=== PATIENT | male | born 1945 | race Caucasian/White ===

== ENCOUNTER → 2020-12-31 08:13 | Outpatient (CLI) | payer MEDICARE, MEDICAID, SELFPAY ==
[2020-12-17 09:46] VITALS: BMI 21.1
--- NOTE | 2020-12-31 08:17 | CT_ITS ---
STUDY: CT CHEST WITH CONTRAST REASON FOR EXAM: Male, 75 years old. BLADDER MASS WITH HISTORY OF COLON CANCER RADIATION DOSAGE (If Supplied By Facility): CTDIvol = ( 12.40 ) mGy, DLP = ( 1156.97 ) mGycm TECHNIQUE: Transaxial imaging was performed following intravenous administration of Oral and amp;amp; IV Readi-CAT and amp;amp; 100mL Isovue-300. Individualized dose optimization techniques were used for this CT. COMPARISON: None. FINDINGS: Increased markings with areas of confluence at the lung bases suggestive of scarring. Pleural thickening at the lung bases. No pulmonary mass lesion is seen. There are calcifications of the coronary arteries. Calcification of the mitral valve annulus. Normal mediastinum. Normal hilar regions. Normal enhanced pulmonary arteries. There is atherosclerotic calcification of the aortic arch with tortuosity and elongation of the aortic arch and descending thoracic aorta. There is demineralization of the thoracic spine. Small hiatal hernia. There is an 8.4 mm hypodensity in the medial portion of the right lobe of the liver suggestive of a small cyst. CT/Chest WITH Contrast IMPRESSION: Findings suggestive of a scarring at the lung bases. No pulmonary infiltration or mass lesion is seen. Electronically Signed: Hira Zhang MD at 10:08 EST , Service support ,
--- NOTE | 2020-12-31 08:17 | CT_ITS ---
STUDY: CT ABDOMEN AND PELVIS WITH CONTRAST REASON FOR EXAM: Male, 75 years old. BLADDER MASS . HISTORY OF COLON CANCER AND COLOSTOMY. RADIATION DOSAGE (If Supplied By Facility): CTDIvol = ( 12.40 ) mGy, DLP = ( 1156.97 ) mGycm TECHNIQUE: Transaxial images were obtained from the dome of the diaphragm to the symphysis pubis with oral contrast. Oral and IV Readi-CAT and 100mL Isovue-300 was administered. Sagittal and coronal images were reconstructed. Individualized dose optimization techniques were used for this CT. COMPARISON: None. FINDINGS: Mild scarring at the lung bases with pleural thickening. Coronary artery calcification. Calcification of the mitral valve annulus. There is a 9.1 mm rounded hypodensity in the medial aspect of the right lobe liver suggestive of a small cyst. There is also evidence of a similar appearing nodule in the right lobe medially measuring 9.5 mm. Normal gallbladder and extrahepatic biliary system. Normal spleen. Normal pancreas. Normal bilateral adrenal glands. Normal right kidney. Normal left kidney. There is a small hiatal hernia. Normal small intestine. A colostomy is seen in the left anterior lower quadrant. The appendix is visualized and appears normal. There is diffuse atherosclerotic calcification of the abdominal aorta, without a demonstrated aneurysm. Normal inferior vena cava. Normal retroperitoneum. There is diffuse bladder wall thickening. There is evidence of a 2.2 cm x 1.9 cm polypoid mass at the base of the bladder on the right side. There is enlargement of the prostate gland. It measures 4.1 cm x 4.8 cm. Normal abdominal wall. There are diffuse degenerative changes of the visualized lumbar spine. Levoscoliosis. CT/Abdomen/Pelvis WITH Contrast IMPRESSION: Diffuse bladder wall thickening with a polypoid mass at the right side of the base of the bladder measuring 2.2 sides by 1.9 sinus. Colostomy is seen in the anterior left lower quadrant. Findings suggestive of a small hepatic cyst. Electronically Signed: Hira Zhang MD at 10:53 EST , Service support ,
== END ==
PROVIDERS: PCP Internal Medicine; Referring Provider Internal Medicine Medical Oncology; Visit Provider Internal Medicine Medical Oncology
DX: N32.89 Other specified disorders of bladder (principal)
CPT/HCPCS: 71260; 74177; Q9967